=== PATIENT | female | born 1940 | race African-American/Black ===

== ENCOUNTER 2020-12-09 22:17 | Emergency (ER) | payer OTHER ==
[~2020-12-09] VITALS: Ht 167.6 cm; Wt 59.0 kg
[~2020-12-09 22:17] MED LIST: ALPRAZOLAM 0.0.25 MG PO; ASPIR 8181 MG PO; ELOCON15 G1 TP; FISH OIL 1,001000 M2 PO; FOSAMAX 70 MG T70 MG PO; LOPRESSOR25 PO; SIMVASTATIN40 MG PO; VITAMIN D2000 UNIT PO
[2020-12-10] MEDS ORDERED: PREDNISONE 20 M20 M1 PO (00:11)
[2020-12-10 00:20] VITALS: BP 136/78
== END 2020-12-10 00:20 | disposition home or self-care (01) ==
LOC: ER 22:17
DX: R22.0 Localized swelling, mass and lump, head (principal); R21 Rash and other nonspecific skin eruption; I10 Essential (primary) hypertension; E78.5 Hyperlipidemia, unspecified; Z96.651 Presence of right artificial knee joint; Z79.899 Other long term (current) drug therapy